=== PATIENT | female | born 1950 | race Caucasian/White ===

== ENCOUNTER 2021-01-18 02:04 | Observation (INO) ==
[2021-01-18] MEDS ORDERED: Oxymetazoline Nasal SPRAY BOTTLE NS ONE (02:15)
[2021-01-18 02:34] LABS: Basophils # 0.1 K/mcL (0.0-0.2); Basophils % 0.4 %; Eosinophils # 0.2 K/mcL (0.0-0.6); Eosinophils % 1.3 %; Hematocrit 24.2 % (35.3-44.9); Immature Granulocytes % 0.7 % (0-4); Lymphocytes # 2.3 K/mcL (0.6-4.6); Lymphocytes % 19.4 %; Mean Corpuscular HGB Conc 28.9 g/dL (31.6-35.5); Mean Corpuscular Hemoglobin 20.3 pg (28.0-33.3); Mean Corpuscular Volume 70.3 fL (83.0-100.0); Monocytes # 0.6 K/mcL (0.0-1.3); Monocytes % 4.9 %; Neutrophils # 8.7 K/mcL (1.6-8.9); Platelet Count 470 K/mcL (140-400); Red Blood Count 3.44 M/mcL (3.82-4.97); Red Cell Distribution Width 18.1 % (11.5-14.5); Segmented Neutrophils % 73.3 %; White Blood Count 11.9 K/mcL (4.3-11.1)
[2021-01-18 02:41] LABS: INR 1.1; Prothrombin Time 13.1 Seconds (9.4-12.1)
[2021-01-18 02:44] LABS: Activated Partial Thrombo Time 26.2 Seconds (26.0-36.0)
[2021-01-18 02:53] LABS: BUN/Creatinine Ratio 27 (6-26); Blood Urea Nitrogen 19 mg/dL (8-23); Calcium 7.9 mg/dL (8.6-10.3); Carbon Dioxide 25 mEq/L (23-29); Chloride 101 mEq/L (98-107); Glucose 237 mg/dL (70-105); Osmolality,Calculated 290 (280-300); Potassium 3.9 mEq/L (3.5-5.1); Sodium 135 mEq/L (136-145); eGFR For African Americans > 60 (> 60); eGFR For Non-African Americans > 60 (> 60)
[2021-01-18] MEDS ORDERED: *HR* FentaNYL (PF) 100 MCG/2 ML VIAL IVP ONE (03:21)
[2021-01-18] MEDS ORDERED: 0.9 % Sodium Chloride 250 ML ONE (03:35)
[2021-01-18] MEDS ORDERED: *HR* HYDROcodone/Acet 5/325 mg TABLET PO PRN ×2 (04:46→07:44)
[2021-01-18] MEDS ORDERED: 0.9 % Sodium Chloride 1,000 ML IVC SCH (04:46)
[2021-01-18] MEDS ORDERED: Naloxone 0.4 MG/ML INJ IVP PRN (04:46)
[2021-01-18 07:01] VITALS: TEMP 98.2
[2021-01-18] MEDS ORDERED: Acetaminophen 325 MG TABLET PO PRN (07:42)
[2021-01-18] MEDS ORDERED: Ondansetron 4 MG/2 ML VIAL IVP PRN (07:43)
[2021-01-18] MEDS ORDERED: carvediloL 25 MG TABLET PO SCH (08:00)
[2021-01-18] MEDS ORDERED: (Mirabegron [Myrbetriq] 25 MG Tab.Er.24h) PO SCH (09:00)
[2021-01-18] MEDS ORDERED: lisinopriL 10 MG TABLET PO SCH (09:00)
[2021-01-18] MEDS ORDERED: Primidone 50 MG TABLET PO SCH (09:00)
[2021-01-18] MEDS ORDERED: Fenofibrate 54 MG TABLET PO SCH (09:00)
[2021-01-18] MEDS ORDERED: Spironolactone 25 MG TABLET PO SCH (09:00)
[2021-01-18 09:25] LABS: Hematocrit 27.5 % (35.3-44.9); Hemoglobin 8.3 g/dL (11.5-15.4)
[2021-01-18 10:19] VITALS: RESP 16; O2SAT 95
[2021-01-18 10:38] VITALS: BP 118/67; PULSE 95
== END 2021-01-18 10:38 | disposition home or self-care (01) ==
LOC: EMEROOPIK 02:04 → INPPIK 02:04
PROVIDERS: ADMIT Family Medicine; ATTEND Family Medicine